=== PATIENT | female | born 1945 | race Caucasian/White ===

== ENCOUNTER 2016-06-15 18:39 | Emergency (ER) ==
[2016-06-15 18:49] VITALS: TEMP 99; BMI 21.7
[2016-06-15] MEDS ORDERED: ANTIVERT PO STA (19:06)
[2016-06-15 19:17] LABS: BASOPHILS % (AUTO) 0.8 % (0.0-3.0); EOSINOPHILS # (AUTO) 0.3 K/ul (0.0-0.7); EOSINOPHILS % (AUTO) 6.3 % (0.0-7.0); HEMATOCRIT 36.2 % (37.0-47.0); HEMOGLOBIN 12.1 g/dl (12.0-16.0); IMMATURE GRANULOCYTE % (AUTO) 0.2 % (0.0-5.0); LYMPHOCYTES # (AUTO) 1.9 K/uL (0.60-3.4); LYMPHOCYTES % (AUTO) 37.6 (10.0-50.0); MEAN CORPUSCULAR HGB CONC 33.4 (31.8-35.4); MEAN CORPUSCULAR VOLUME 89.8 fl (81.0-99.0); MONOCYTES # (AUTO) 0.7 K/uL (0.4-2.0); MONOCYTES % (AUTO) 14.7 (0-10); NEUTROPHILS % (AUTO) 40.4; PLATELET COUNT 209 10^3/uL (140-440); RED BLOOD COUNT 4.03 10^6/ul (4.20-5.40); WHITE BLOOD COUNT 4.95 K/ul (4.6-10.2)
[2016-06-15 19:43] LABS: ALBUMIN 3.6 g/dL (3.4-5.0); ALBUMIN/GLOBULIN RATIO 1.24; BILIRUBIN,TOTAL 0.38 mg/dL (0.00-1.20); BUN/CREATININE RATIO 10.79; CALCIUM 9.7 mg/dL (8.2-10.2); CREATININE 2.13 mg/dL (0.60-1.30); TOTAL PROTEIN 6.5 g/dL (5.8-8.1); TROPONIN I 0.016 ng/ml (0.0000-0.4000)
[2016-06-15 19:46] VITALS: BP 172/77
--- NOTE | 2016-06-15 20:01 | ED.PDOC ---
General ED Provider: Dr. RADHA HURST Chief Complaint: Hypertension Stated Complaint: Patient is a 71 year old who C/o BP elevated since this morning and dizziness when she changes postion. Symtoms area intermiteint . " Time Seen by Physician: 19:59 Mode of Arrival: Wheelchair Information Source: Patient Exam Limitations: No limitations Primary Care Provider: KALYN MILLIGAN Nursing and Triage Documentation Reviewed and Agree: Yes Neurological Complaint Exam - Dizziness Complaint/Exam Last Known Well: yesterday Onset: Sudden Duration: intermient Symptoms Are: Still present Timing: Intermittent Episodes Lasting: Minutes Initial Severity: Moderate Current Severity: Moderate Character: Reports: Room spinning, Lightheaded Aggravating: Reports: Position change Alleviating: Reports: Rest Associated Signs and Symptoms: Denies: Nausea, Vomiting, Diaphoresis, Tinnitus, Chest pain, Short of air, Palpitations, Unsteady gait, GI blood loss, Visual changes, Decreased oral intake, Change in medication, Change in diet, OTC meds, Loss of balance Cardiac Risk Factors: Reports: None CVA Risk Factors: Reports: None Related Surgical History: Reports: None JVD Present: No Carotid Bruit Present: No Rectal Heme Positive: No Nystagmus Present: No Gag Reflex Present: No Meningeal Signs Positive: No Focal Weakness: Present: None Focal Sensory Loss: Present: None Gait: Normal [id number]: Normal Findings Romberg Test Positive: No Babinski Sign: Negative Right, Negative Left Heel to Toe Normal: Yes Ireton-Hallpike Test Positive: Yes (bilaterally ) Differential Diagnoses: BPPV Quality Indicator For Non-Traumatic Chest Pain/Syncope: EKG Performed Review of Systems - Review Of Systems Constitutional: Reports: No symptoms Eyes: Reports: No symptoms Ears, Nose, Mouth, Throat: Reports: No symptoms Respiratory: Reports: No symptoms Cardiac: Reports: Lightheadedness GI: Reports: No symptoms : Reports: No symptoms Musculoskeletal: Reports: No symptoms Skin: Reports: No symptoms Neurological: Reports: Anxiety Endocrine: Reports: No symptoms Hematologic/Lymphatic: Reports: No symptoms All Other Systems: Reviewed and Negative Past Medical History - Past Medical History Previously Healthy: No Endocrine: Reports: Dyslipidemia Cardiovascular: Reports: CAD, Hypertension Respiratory: Reports: None Hematological: Reports: None Gastrointestinal: Reports: None Genitourinary: Reports: CKD Neuro/Psych: Reports: None Musculoskeletal: Reports: None Cancer: Reports: None Last Menstrual Period: unknown Other Pertinent Past Medical History: only has one kidney - Surgical History General Surgical History: Reports: None - Family History Family History: Reports: None - Social History Smoking Status: Never smoker Hx Substance Use: No Alcohol Screening: None Physical Exam - Physical Exam Appearance: Ill-appearing, Thin Ill-appearing: Mild Eyes: ERICA, EOMI, Conjunctiva clear ENT: Ears normal, Nose normal, Oropharynx normal Respiratory: Airway patent, Breath sounds clear, Breath sounds equal, Respirations nonlabored Cardiovascular: RRR, Pulses normal, No rub, No murmur GI/: Soft, Nontender, No masses, Bowel sounds normal, No Organomegaly Musculoskeletal: Normal strength, ROM intact, No edema, No calf tenderness Skin: Warm, Dry, Normal color Neurological: Sensation intact, Motor intact, Reflexes intact, Cranial nerves intact, Alert, Oriented Psychiatric: Anxious Interpretation - Radiology Interpretation Radiology Interpretation By: Radiologist Radiology Results: Negative Exam Interpreted: CT Scan - EKG Interpretation Time of EKG #1: 19:29 Rate: Normal Rhythm: Sinus [place]: Left Interpretation: LBBB Re-Evaluation - Re-Evaluation Time of Re-Evaluation: 20:00 Status: Improved Critical Care Note - Critical Care Note Total Time (mins): 0 Course - Course Hematology/Chemistry: 06/15/16 19:15 06/15/16 19:15 Orders, Labs, Meds: Lab Review 06/15/16 19:15 WBC 4.95 RBC 4.03 L Hgb 12.1 Hct 36.2 L MCV 89.8 MCH 30.0 MCHC 33.4 RDW Coeff of Mickey 14.2 Plt Count 209 Immature Gran % (Auto) 0.2 Neut % (Auto) 40.4 Lymph % (Auto) 37.6 [place] % (Auto) 14.7 H Eos % (Auto) 6.3 Baso % (Auto) 0.8 Immature Gran # (Auto) 0.0 Neut # 2.0 Lymph # 1.9 [place] # 0.7 Eos # 0.3 Baso # 0.0 Sodium 140 Potassium 4.0 Chloride 108 H Carbon Dioxide 24 Anion Gap 12.0 BUN 23 H Creatinine 2.13 H Estimated GFR (MDRD) 23.00 BUN/Creatinine Ratio 10.79 Glucose 109 Calcium 9.7 Total Bilirubin 0.38 AST 16 ALT 13 Alkaline Phosphatase 52 L Total Creatine Kinase 60 Troponin I 0.0160 Total Protein 6.5 Albumin 3.6 Globulin 2.9 Albumin/Globulin Ratio 1.24 Orders Category Date Time Status EKG-(ED ONLY) Stat CARDIO 06/15/16 19:06 Ordered ED ORTHOSTATIC VITAL SIGNS .ONCE EMERGENCY 06/15/16 19:06 Active CBC W/ AUTO DIFF Stat LAB 06/15/16 19:15 Completed COMPREHENSIVE METABOLIC PANEL Stat LAB 06/15/16 19:15 Completed CREATINE KINASE Stat LAB 06/15/16 19:15 Completed TROPONIN I Stat LAB 06/15/16 19:15 Completed Meclizine HCl [Antivert] MEDS 06/15/16 19:06 Discontinued 25 mg PO ONCE STA CT HEAD W/O CONTRAST Stat RADS 06/15/16 19:06 Completed Medications Discontinued Medications Generic Name Dose Route Start Last Admin Trade Name Freq PRN Reason Stop Dose Admin Meclizine HCl 25 mg 06/15/16 19:06 06/15/16 19:27 Antivert PO 06/15/16 19:07 25 mg ONCE STA Administration Vital Signs: Temp Pulse Resp BP Pulse Ox 06/15/16 19:45 66 172/77 H 06/15/16 19:44 66 169/91 H 06/15/16 18:40 99.0 F 74 20 174/91 H 94 L Departure - Departure Time of Disposition: 20:03 Disposition: HOME SELF-CARE Discharge Problem: Vertigo Instructions: Vertigo (ED) Condition: Fair Pt referred to PMD for follow-up: Yes Additional Instructions: Take medication as prescribed push fluids Follow up with PCP in 3 days Prescriptions: Meclizine HCl 12.5 mg PO TID PRN #25 tablet PRN Reason: Vertigo Allergies/Adverse Reactions: Allergies atorvastatin calcium [From Lipitor] Adverse Reaction (Verified 06/15/16 18:49) meperidine HCl [From Demerol] Adverse Reaction (Verified 06/15/16 18:49) Tetanus Vaccines and Toxoid [Tetanus Vaccines & Toxoid] Adverse Reaction ( Verified 06/15/16 18:49) Home Medications: Ambulatory Orders Aripiprazole [Abilify] 20 mg PO BEDTIME 12/28/12 Aspirin [Aspirin EC] 81 mg PO DAILY 12/28/12 Cinacalcet HCl [Sensipar] 30 mg PO DAILY 12/28/12 Cyanocobalamin/Folic Acid [Vitamin P06-Qycml Acid Tablet] 1 each PO BEDTIME 12/30 Cyclobenzaprine HCl [Flexeril] 5 mg PO PRN PRN 12/28/12 Famotidine 20 mg PO BID 12/28/12 Ferrous Fumarate [Iron] 55 mg PO BEDTIME 12/28/12 Hydrocodone Bit/Acetaminophen [Lortab 5-500] 5 mg PO PRN PRN 12/28/12 Lisinopril [Zestril] 10 mg PO DAILY 12/28/12 [place]-3/Dha/Epa/Fish Oil [Fish Oil 1,400 mg Softgel] 1 cap PO BEDTIME 12/28/12 Cholestyramine (with Sugar) [Cholestyramine Powder] 378 gm PO BID 11/09/14 Cranberry Conc/C/Bacill Coag [Cranberry Tablet] 1 each PO DAILY 11/09/14 Ezetimibe/Simvastatin [Vytorin 10-20 mg Tablet] 1 each PO BEDTIME 11/09/14 Lorazepam 0.5 mg PO PRN PRN 11/09/14 Vitamin B Complex 1 each PO BEDTIME 11/09/14 Gabapentin [Neurontin] 300 mg PO BID 04/08/15 Aripiprazole [Abilify] 20 mg PO BEDTIME #30 09/14/15 Doxepin HCl 100 mg PO BEDTIME #30 09/14/15 Aripiprazole [Abilify] 20 mg PO BEDTIME #30 12/07/15 Doxepin HCl 100 mg PO BEDTIME #30 12/07/15 Temazepam [Restoril] 30 mg PO BEDTIME #30 02/29/16 Meclizine HCl 12.5 mg PO TID PRN #25 tablet 06/15/16 Disposition Discussed With: Patient, Family
--- NOTE | 2016-06-15 20:08 | CT ---
EXAM: CT brain without contrast HISTORY: Dizziness TECHNIQUE: CT of the brain without intravenous contrast FINDINGS: There is no acute hemorrhage midline shift or mass effect. No hydrocephalus or abnormal extra-axial fluid collection. Generalized involutional atrophy, moderate. Chronic microvascular ch anges of the white matter tracts, mild. No acute large vessel territorial infarct is seen. The bon y cranium appears normal. The visualized paranasal sinuses are clear. Soft tissues without significa nt abnormality. IMPRESSION: 1. No acute intracranial abnormality. Chronic changes as described.
== END 2016-06-15 20:28 | disposition home or self-care (01) ==
LOC: ED 18:39
DX: R42 Dizziness and giddiness (principal); I10 Essential (primary) hypertension; E78.5 Hyperlipidemia, unspecified; I25.10 Atherosclerotic heart disease of native coronary artery without angina pectoris; N18.9 Chronic kidney disease, unspecified; Z79.899 Other long term (current) drug therapy
CPT/HCPCS: 36415; 80053; 82550; 84484; 85025; 93005; 93010; 99283; 99285

== ENCOUNTER 2016-06-24 09:40 | Outpatient (CLI) | payer OTHER ==
--- NOTE | 2016-06-24 10:50 | CT ---
EXAM: CT pelvis HISTORY: Low back pain going into the tail bone region. TECHNIQUE: CT pelvis without contrast. Multiplanar images provided. FINDINGS: Comparison may be made to 06/22/2012. No fracture is identified. Hip joints are within normal limits. The lower synovial portions of both sacroiliac joints demonstrate early osteoarthritis. The sacroiliac joints were otherwise within no rmal limits. Sagittal images demonstrate normal alignment of the sacral segments. Mild sigmoid diverticulosis. Visualized bowel has normal gas pattern. Urinary bladder appears norm al. No uterus is identified. There is no intraperitoneal fluid or inflammation identified. Mildly prominent bilateral fatty inguinal canals. Incidental note of degenerative facet disease of the lo wer spine. See also same day CT lumbar spine report. IMPRESSION: 1. 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 2. Hip joints appear normal. 3. No fracture or dislocation.
--- NOTE | 2016-06-24 10:51 | CT ---
Exam: CT exam of the lumbar spine without intravenous contrast. Comparison: 04/08/2015. Reason for exam: Low back pain. FINDINGS: There is a similar appearing levoscoliosis of the lumbar spine. Atherosclerotic disease is seen within the aorta and distal arterial vasculature. There is a small to moderately sized hiatal hernia. No acute fracture or listhesis. Similar appearing grade 1 retrolithesis of L1 on L2. Multilevel deg enerative disease is seen with anterior osteophyte formation. T10-T11: No significant central canal narrowing or foraminal stenosis. T11-T12: No significant central canal narrowing or foraminal stenosis. T11-L1: No significant central canal narrowing or foraminal stenosis. L1-L2: Small broad-based disc bulge with minimal impression on the thecal sac and mild foraminal na rrowing on the left with moderate foraminal narrowing on the right secondary to a combination of ext ruded disc and facet hypertrophy. L2-L3: Small broad-based disc bulge without significant impression on the thecal sac or foraminal n arrowing. L3-L4: No significant central canal narrowing or foraminal stenosis L4-L5: Small broad-based disc bulge without significant foraminal stenosis L5-S1: No significant central canal narrowing or foraminal stenosis. Impression: 1. No acute fracture or listhesis. 2. Similar appearing degenerative changes as described.
== END 2016-06-24 09:41 | disposition home or self-care (01) ==
LOC: RAD 09:40
PROVIDERS: ATTEND Emergency Medicine
DX: M54.5 Low back pain (principal)

== ENCOUNTER 2016-06-28 06:36 | Outpatient (CLI) | payer OTHER ==
[2016-06-28 07:05] LABS: HEMATOCRIT 38.1 % (37.0-47.0); HEMOGLOBIN 12.4 g/dl (12.0-16.0); MEAN CORPUSCULAR HGB CONC 32.5 (31.8-35.4); RED BLOOD COUNT 4.14 10^6/ul (4.20-5.40); WHITE BLOOD COUNT 8.81 K/ul (4.6-10.2)
[2016-06-28 07:08] LABS: BILIRUBIN,URINE Negative (NEGATIVE); KETONES,URINE Negative (NEGATIVE); LEUKOCYTE ESTERASE ,URINE Negative (NEGATIVE); NITRITE,URINE Negative (NEGATIVE); PROTEIN,URINE Negative (NEGATIVE); URINE, BLOOD Negative (NEGATIVE)
[2016-06-28 07:20] LABS: ADD URINE MICROSCOPIC NO
[2016-06-28 07:26] LABS: ALBUMIN 3.6 g/dL (3.4-5.0); ANION GAP 11.9; BUN/CREATININE RATIO 12.7; CALCIUM 9.5 mg/dL (8.2-10.2); CREATININE 1.81 mg/dL (0.60-1.30); PHOSPHORUS 2.8 mg/dL (2.8-4.1); POTASSIUM 3.9 mmol/L (3.5-5.10); URIC ACID 7.9 mg/dL (2.4-6.0)
== END 2016-06-28 06:37 | disposition home or self-care (01) ==
LOC: LAB 06:36
PROVIDERS: ATTEND Specialist
DX: N18.4 Chronic kidney disease, stage 4 (severe) (principal)
CPT/HCPCS: 36415; 80069; 81001; 83970; 84550; 85027

== ENCOUNTER 2016-09-16 10:23 | Day surgery (SDC) ==
[2016-09-16] MEDS ORDERED: DIPRIVAN 20 ML VIAL IVP ONE (10:52)
[2016-09-16] MEDS ORDERED: LIDOCAINE HCL 2% LUER-JET ONE (10:52)
[2016-09-16] MEDS ORDERED: VERSED ONE (10:52)
[2016-09-16 12:10] VITALS: BP 173/87; TEMP 97
--- NOTE | 2016-09-17 09:58 | OP ---
PROCEDURE: EGD (ESOPHAGOGASTRODUODENOSCOPY) WITH BIOPSY. ENDOSCOPIST: Juan R DANIELSON M.D. INDICATION: HISTORY OF CHANG'S ESOPHAGUS INSTRUMENT: [id number]. MEDICATION: PER ANESTHESIA. PROCEDURE: The patient was positioned for endoscopy. The oropharynx was sprayed with Cetacaine spray and the endoscope was advanced through the bite block into the esophagus and from there advanced to the duodenum. The duodenum was normal. The pylorus was patent. The antrum is normal. She has a very large hiatal hernia. The distal esophagus reveals evidence for Chang's at approximately 25 cm and biopsies were obtained. No other abnormalities were noted. PLAN: 1. Review her pathology. Given her overall medical condition, I'm not certain that repeat endoscopy for Chang's would be indicated. It would be in 3 to 5 years if we decide to continue surveillance. [facility]
== END 2016-09-16 12:12 | disposition home or self-care (01) ==
LOC: SURG 10:23
PROVIDERS: ATTEND Internal Medicine Gastroenterology
DX: K22.70 Barrett's esophagus without dysplasia (principal); K44.9 Diaphragmatic hernia without obstruction or gangrene

== ENCOUNTER 2016-12-14 22:59 | Emergency (ER) ==
[2016-12-14 23:02] VITALS: BP 175/79; TEMP 97.5; BMI 25.4
--- NOTE | 2016-12-14 23:23 | ED.PDOC ---
General ED Provider: Dr. RADHA HURST Chief Complaint: Hypertension Stated Complaint: Patient comes to the Er with Complaints of elevated blood pressure at home. Blood pressure at home was 170/100s Time Seen by Physician: 23:00 Mode of Arrival: Walk-In Information Source: Patient, Family Exam Limitations: No limitations Primary Care Provider: KALYN MILLIGAN Nursing and Triage Documentation Reviewed and Agree: Yes Miscellaneous Complaint Exam - Complex/Multi-System Complaint/Exam Onset/Duration: 3 hours Symptoms Are: Still present Associated Signs and Symptoms: Denies: Decreased responsiveness, Confusion, Agitation, Dizziness, Weakness, Syncope, Headache, Short of air, Cough, Wheezing , Hemoptysis, Chest pain, Palpitations, Edema, Nausea, Vomiting, Diarrhea, Abdominal pain, Back pain, Dysuria, Hematemesis, Melena, Decreased oral intake, Fever, Diaphoresis, Immunocompromised, Anticoagulation Therapy, Recent medication changes, Indwelling medical billing coordinator, Prior MRSA, Prior VRE, Recent trauma, Remote trauma Abdominal Findings: Present: Normal findings Glascow Coma Scale (see protocol): 15 Focal Weakness: Present: None Focal Sensory Loss: Present: None Gait: Normal Gag Reflex Present: No Babinski Sign: Negative Right, Negative Left Skin Findings: Present: Normal findings Joint Swelling Present: No In-Dwelling Device Present: No Review of Systems - Review Of Systems Constitutional: Reports: No symptoms Eyes: Reports: No symptoms Ears, Nose, Mouth, Throat: Reports: No symptoms Respiratory: Reports: No symptoms Cardiac: Reports: No symptoms GI: Reports: No symptoms : Reports: No symptoms Musculoskeletal: Reports: No symptoms Skin: Reports: No symptoms Neurological: Reports: Anxiety, Other (Head felt funny. ) Endocrine: Reports: No symptoms Hematologic/Lymphatic: Reports: No symptoms All Other Systems: Reviewed and Negative Past Medical History - Past Medical History Previously Healthy: No Endocrine: Reports: Dyslipidemia Cardiovascular: Reports: CAD, Hypertension Respiratory: Reports: None Hematological: Reports: None Gastrointestinal: Reports: None Genitourinary: Reports: CKD Neuro/Psych: Reports: None Musculoskeletal: Reports: None Cancer: Reports: None Last Menstrual Period: YEARS Other Pertinent Past Medical History: only has one kidney - Surgical History General Surgical History: Reports: None, Stent Placement, Other (partial hysterectomy, tubal ligation heart stent 2 .5 years ago) - Family History Family History: Reports: None - Social History Smoking Status: Never smoker Hx Substance Use: No Alcohol Screening: None - Immunizations Tetanus Shot up to Date: Yes Physical Exam - Physical Exam Appearance: Ill-appearing, No pain distress, Thin Eyes: ERICA, EOMI, Conjunctiva clear ENT: Nose normal, Oropharynx normal Neck: Supple Respiratory: Airway patent, Breath sounds clear, Breath sounds equal, Respirations nonlabored Cardiovascular: RRR, Pulses normal, No rub, No murmur GI/: Soft, Nontender, No masses, Bowel sounds normal, No Organomegaly Musculoskeletal: Normal strength, ROM intact, No edema, No calf tenderness Skin: Warm, Dry, Normal color Neurological: Sensation intact, Motor intact, Reflexes intact, Cranial nerves intact, Alert, Oriented Psychiatric: Anxious Re-Evaluation - Re-Evaluation Time of Re-Evaluation: 23:33 Status: Improved Vital Signs Stable: Yes (BP 160/70) Critical Care Note - Critical Care Note Total Time (mins): 0 Course - Course Vital Signs: Temp Pulse Resp BP Pulse Ox 12/14/16 22:59 97.5 F L 79 18 175/79 H 97 Departure - Departure Time of Disposition: 23:34 Disposition: HOME SELF-CARE Discharge Problem: Hypertension Qualifiers: Hypertension type: essential hypertension Qualified Code(s): I10 - Essential ( primary) hypertension Instructions: Hypertension (ED) Condition: Stable Pt referred to PMD for follow-up: Yes Additional Instructions: Follow up with PCP in 1-2 days continue home medications. Allergies/Adverse Reactions: Allergies atorvastatin calcium [From Lipitor] Adverse Reaction (Unverified 12/05/16 11:23) meperidine HCl [From Demerol] Adverse Reaction (Unverified 12/05/16 11:23) Tetanus Vaccines and Toxoid [Tetanus Vaccines & Toxoid] Adverse Reaction ( Unverified 12/05/16 11:23) Home Medications: Ambulatory Orders Aripiprazole [Abilify] 20 mg PO BEDTIME 12/28/12 Aspirin [Aspirin EC] 81 mg PO DAILY 12/28/12 Cinacalcet HCl [Sensipar] 30 mg PO DAILY 12/28/12 Famotidine 20 mg PO BID 12/28/12 Ferrous Fumarate [Iron] 55 mg PO BEDTIME 12/28/12 Lisinopril [Zestril] 10 mg PO DAILY 12/28/12 [place]-3/Dha/Epa/Fish Oil [Fish Oil 1,400 mg Softgel] 1 cap PO BEDTIME 12/28/12 Cranberry Conc/C/Bacill Coag [Cranberry Tablet] 1 each PO DAILY 11/09/14 Vitamin B Complex 1 each PO BEDTIME 11/09/14 Acetaminophen [Tylenol Extra Strength] 500 mg PO DIRECTED PRN 12/05/16 Carvedilol 6.25 mg PO BID 12/05/16 Cholecalciferol (Vitamin D3) [Vitamin D3] 800 unit PO DAILY 12/05/16 Ezetimibe [Zetia] 10 mg PO BEDTIME 12/05/16 Disposition Discussed With: Patient, Family
== END 2016-12-14 23:42 | disposition home or self-care (01) ==
LOC: ED 22:59
DX: I10 Essential (primary) hypertension (principal)
CPT/HCPCS: 99281

== ENCOUNTER 2017-02-12 12:42 | Outpatient (CLI) | END 2017-02-12 12:43 | disposition home or self-care (01) | LOC: RAD 12:42 | PROVIDERS: ATTEND Internal Medicine | DX: Z12.31 Encounter for screening mammogram for malignant neoplasm of breast (principal) | CPT/HCPCS: 77067 ==

== ENCOUNTER 2017-05-20 07:07 | Outpatient (CLI) | payer OTHER | END 2017-05-20 07:08 | disposition home or self-care (01) | LOC: LAB 07:07 | PROVIDERS: ATTEND Specialist | DX: N18.3 Chronic kidney disease, stage 3 (moderate) (principal) | CPT/HCPCS: 36415; 80069; 81001; 83970; 84550; 85027 ==

== ENCOUNTER 2017-10-24 16:38 | Emergency (ER) ==
[2017-10-24] MEDS: EPINEPHRINE 1:10,000 SYRINGE IV PRN ×4 (16:38→16:48)
[2017-10-24 16:53] VITALS: BP 0/0; TEMP 96.9; BMI 20.7
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
--- NOTE | 2017-10-24 18:29 | DI ---
Exam: Single view chest x-ray. Date: 10/24/2017. Comparison: 11/09/2014. HISTORY: Endotracheal tube placement. FINDINGS: Endotracheal tube has been placed and the tip extends approximately 3.9 cm down the right mainstem bronchus. The lungs are hyperinflated. There is a large hiatal hernia. Cardiac silhouette and pulmonary vasculature are normal. Impression: Endotracheal tube has been placed and the tip extends approximately 3.9 cm into the righ t mainstem bronchus. Probable emphysematous changes. Hiatal hernia. Critical results were called to Pilar DUMONT at 6:23 p.m. on 10/24/2017.
== END 2017-10-24 20:40 | disposition expired ==
LOC: ED 16:38
DX: I46.9 Cardiac arrest, cause unspecified (principal); I25.10 Atherosclerotic heart disease of native coronary artery without angina pectoris; I10 Essential (primary) hypertension; E78.5 Hyperlipidemia, unspecified; N18.9 Chronic kidney disease, unspecified; Z95.5 Presence of coronary angioplasty implant and graft
CPT/HCPCS: 96374; 96376; 99291